=== PATIENT | female | born 1985 | race Caucasian/White ===

== ENCOUNTER 2023-07-25 22:32 | Inpatient (IN) | payer MEDICAID ==
[~2023-07-25] VITALS: Ht 154.9 cm; Wt 68.9 kg
[2023-07-25 22:39] VITALS: BP_SYST 109; PULSE 100; RESP 18; TEMP 98.4; O2SAT 100
[2023-07-26] VITALS (10 sets, daily range): BP systolic 89–108; PULSE 71–100; RESP 14–20; TEMP 97.5–99.3; O2SAT 96–100
[2023-07-26 00:11] LABS: BASOPHILS % (AUTO) 0.4 % (0.0-2.0); EOSINOPHILS % (AUTO) 0.4 % (0.0-4.0); HEMATOCRIT 38.4 % (36-48); HEMOGLOBIN 12.9 g/dL (12.0-16.0); LYMPHOCYTES # (AUTO) 2.4 K/uL (1.0-5.5); LYMPHOCYTES % (AUTO) 26.9 % (20.5-51.5); MEAN CORPUSCULAR HEMOGLOBIN 29 pg (27-31); MEAN CORPUSCULAR HGB CONC 34 % (32-36); MEAN CORPUSCULAR VOLUME 87 fL (79.0-98.0); MONOCYTES # (AUTO) 1.1 K/uL (0.0-1.0); NEUTROPHILS # (AUTO) 5.3 K/uL (1.8-7.7); NEUTROPHILS % (AUTO) 60.3 % (40.0-70.0); PLATELET COUNT (AUTO) 271 K/uL (130-430); RED BLOOD CELL COUNT(AUTO) 4.44 MIL/uL (4.2-6.2); RED CELL DISTRIBUTION WIDTH 13.5 % (9.0-15.0); WHITE BLOOD COUNT (AUTO) 8.8 K/uL (4.8-10.8)
[2023-07-26 00:25] LABS: INR 0.9 (0.8-1.2); PROTHROMBIN TIME 9.8 SECS (9.5-12.5)
[2023-07-26 00:31] LABS: CALCIUM 8.9 mg/dL (8.4-11.0); CREATININE 0.84 mg/dL (0.55-1.30); TOTAL BILIRUBIN 0.6 mg/dL (0.0-1.0)
[2023-07-26 00:40] LABS: POTASSIUM 2.9 mmol/L (3.5-5.1)
[2023-07-26] MEDS ORDERED: BACITRACIN 1 GM OINT TP ONE (00:45)
[2023-07-26] MEDS ORDERED: ONDANSETRON HCL 4 MG/2 ML VIAL IVP ONE (00:45)
[2023-07-26] MEDS ORDERED: KCL 20 mEq in 100 mL (PREMIX) 100 ML IV ONE (02:45)
[2023-07-26] MEDS ORDERED: fentaNYL CITRATE/PF 100 MCG/2 ML AMP IVP ONE ×2 (02:45)
[2023-07-26] MEDS ORDERED: POTASSIUM CHLORIDE 20 MEQ TAB.PRT.SR PO ONE (02:45)
[2023-07-26] MEDS ORDERED: MORPHINE 2 MG/ML INJ. SYRINGE IVP PRN (03:30)
[2023-07-26 04:46] LABS: CALCIUM 8.7 mg/dL (8.4-11.0); CREATININE 0.77 mg/dL (0.55-1.30); POTASSIUM 3.3 mmol/L (3.5-5.1)
[2023-07-26 04:47] LABS: BASOPHILS % (AUTO) 0.4 % (0.0-2.0); EOSINOPHILS % (AUTO) 0.1 % (0.0-4.0); HEMATOCRIT 34.6 % (36-48); HEMOGLOBIN 11.6 g/dL (12.0-16.0); LYMPHOCYTES # (AUTO) 1.7 K/uL (1.0-5.5); LYMPHOCYTES % (AUTO) 18.1 % (20.5-51.5); MEAN CORPUSCULAR HEMOGLOBIN 29 pg (27-31); MEAN CORPUSCULAR HGB CONC 34 % (32-36); MEAN CORPUSCULAR VOLUME 86 fL (79.0-98.0); MONOCYTES # (AUTO) 0.8 K/uL (0.0-1.0); MONOCYTES % (AUTO) 8.4 % (1.7-9.3); NEUTROPHILS # (AUTO) 6.9 K/uL (1.8-7.7); PLATELET COUNT (AUTO) 245 K/uL (130-430); RED BLOOD CELL COUNT(AUTO) 4.03 MIL/uL (4.2-6.2); RED CELL DISTRIBUTION WIDTH 13.6 % (9.0-15.0); WHITE BLOOD COUNT (AUTO) 9.4 K/uL (4.8-10.8)
[2023-07-26 04:51] LABS: ALBUMIN 3.6 g/dL (3.4-4.8); TOTAL BILIRUBIN 0.6 mg/dL (0.0-1.0); TOTAL PROTEIN, SERUM 7.2 g/dL (6.4-8.3)
[2023-07-26] MEDS ORDERED: ONDANSETRON HCL 4 MG/2 ML VIAL IVP PRN ×2 (06:00→13:00)
[2023-07-26] MEDS ORDERED: D5/0.45 NS 1,000 ML IV SCH (06:00)
[2023-07-26 10:24] LABS: BILIRUBIN,URINE NEGATIVE (NEGATIVE); BLOOD, URINE 3+ (NEGATIVE); COLOR,URINE YELLOW (YELLOW); GLUCOSE,URINE NEGATIVE (NEGATIVE); KETONES,URINE NEGATIVE (NEGATIVE); LEUKOCYTE ESTERASE ,URINE NEGATIVE (NEGATIVE); NITRITE, URINE NEGATIVE (NEGATIVE); PH,URINE 5.5 (5.0-8.0); PROTEIN URINE TRACE (NEGATIVE); UROBILINOGEN,URINE 0.2 (0.2-1.0)
[2023-07-26 10:26] LABS: CLARITY/URINE HAZY (CLEAR)
[2023-07-26 10:31] LABS: HCG,QUAL RESULT NEGATIVE (NEGATIVE)
[2023-07-26 10:35] LABS: BACTERIA,URINE FEW /HPF (None Seen); MUCUS,URINE 1+ /LPF (None Seen); WBC,URINE 0-3 /HPF (0-3)
[2023-07-26] MEDS ORDERED: DEXAMETHASONE SOD PHOSPHATE 4 MG/ML VIAL ONE (12:08)
[2023-07-26] MEDS ORDERED: PROPOFOL 200MG/ 20ML VIAL (DIPRIVAN) IV ONE (12:08)
[2023-07-26] MEDS ORDERED: KETOROLAC TROMETHAMINE 30 MG VIAL ONE (12:08)
[2023-07-26] MEDS ORDERED: MORPHINE SULFATE 10MG/10ML PF AMP ONE (12:08)
[2023-07-26] MEDS ORDERED: LIDOCAINE 2%, 20 ML MDV ONE (12:08)
[2023-07-26] MEDS ORDERED: NS IRRIG SOLN 1000 ML IR ONE (12:08)
[2023-07-26] MEDS ORDERED: BUPIVACAINE /PF 0.5% 30 ML VIAL ONE (12:08)
[2023-07-26] MEDS ORDERED: ceFAZolin SODIUM 1 GM VIAL ONE (12:08)
[2023-07-26] MEDS ORDERED: ONDANSETRON HCL 4 MG/2 ML VIAL ONE (12:08)
[2023-07-26] MEDS ORDERED: MIDAZOLAM HCL 5 MG/ML VIAL (VERSED) IV ONE (12:08)
[2023-07-26] MEDS ORDERED: DIPHENHYDRAMINE INJ 50 MG/ML VIAL IVP PRN (13:00)
[2023-07-26] MEDS ORDERED: NALOXONE HCL 0.4 MG/ML AMP (NARCAN) IVP PRN (13:00)
[2023-07-26] MEDS ORDERED: METOCLOPRAMIDE HCL 10 MG/2 ML VIAL IVP PRN (13:00)
[2023-07-26] MEDS ORDERED: MEPERIDINE HCL/PF 25 MG/ML DISP.SYRIN IVP PRN (13:00)
[2023-07-26] MEDS ORDERED: HYDROmorphone 1 MG/ML INJ. CARTRIDGE IVP PRN ×2 (13:00)
[2023-07-26] MEDS: LR 1,000 ML IV SCH ×2 (13:00→23:00)
[2023-07-26] MEDS ORDERED: MIDAZOLAM HCL 2 MG/2 ML VIAL (VERSED) IVP PRN (13:00)
[2023-07-26] MEDS ORDERED: ACETAMINOPHEN I.V. 1000 MG 100 ML IV ONE (13:29)
[2023-07-26] MEDS: D5/0.45 NS 1,000 ML IV SCH ×2 (14:15→22:57)
[2023-07-26] MEDS: TAMSULOSIN HCL 0.4 MG CAP PO SCH (22:57)
[2023-07-27] VITALS (7 sets, daily range): BP systolic 95–116; PULSE 70–93; RESP 16–18; TEMP 97.6–99.3; O2SAT 96–100
[2023-07-27 05:01] LABS: BASOPHILS % (AUTO) 0.2 % (0.0-2.0); EOSINOPHILS % (AUTO) 0.1 % (0.0-4.0); HEMATOCRIT 28.1 % (36-48); HEMOGLOBIN 9.4 g/dL (12.0-16.0); LYMPHOCYTES # (AUTO) 1.9 K/uL (1.0-5.5); LYMPHOCYTES % (AUTO) 24.3 % (20.5-51.5); MEAN CORPUSCULAR HEMOGLOBIN 29 pg (27-31); MEAN CORPUSCULAR HGB CONC 33 % (32-36); MEAN CORPUSCULAR VOLUME 87 fL (79.0-98.0); MONOCYTES # (AUTO) 0.8 K/uL (0.0-1.0); MONOCYTES % (AUTO) 10.5 % (1.7-9.3); NEUTROPHILS % (AUTO) 64.9 % (40.0-70.0); PLATELET COUNT (AUTO) 210 K/uL (130-430); RED BLOOD CELL COUNT(AUTO) 3.23 MIL/uL (4.2-6.2); RED CELL DISTRIBUTION WIDTH 13.7 % (9.0-15.0); WHITE BLOOD COUNT (AUTO) 7.8 K/uL (4.8-10.8)
[2023-07-27 05:27] LABS: CALCIUM 8.1 mg/dL (8.4-11.0); CREATININE 0.64 mg/dL (0.55-1.30)
[2023-07-27] MEDS: TAMSULOSIN HCL 0.4 MG CAP PO SCH (08:29)
[2023-07-27] MEDS: D5/0.45 NS 1,000 ML IV SCH ×2 (08:40→19:14)
[2023-07-27] MEDS ORDERED: HYDR-3917 PO (11:34)
[2023-07-27] MEDS: MORPHINE 2 MG/ML INJ. SYRINGE IVP PRN (20:23)
[2023-07-28 00:50] VITALS: BP_SYST 104; PULSE 80; RESP 18; TEMP 97.4; O2SAT 100
[2023-07-28] MEDS: MORPHINE 2 MG/ML INJ. SYRINGE IVP PRN ×2 (04:40→09:24)
[2023-07-28] MEDS: D5/0.45 NS 1,000 ML IV SCH (04:41)
[2023-07-28 08:00] VITALS: BP_SYST 116; PULSE 69; RESP 18; TEMP 97.9; O2SAT 100
[2023-07-28] MEDS: TAMSULOSIN HCL 0.4 MG CAP PO SCH (09:06)
[2023-07-28 11:27] VITALS: BP_SYST 118; PULSE 79; RESP 16; TEMP 96.7; O2SAT 96
[2023-07-28 12:00] VITALS: BP_SYST 109; PULSE 86; RESP 18; TEMP 98; O2SAT 100
[2023-07-28] MEDS ORDERED: ASPI-1393 PO (12:14)
[2023-07-28 13:20] VITALS: BP_SYST 109; PULSE 85; RESP 18; TEMP 98; O2SAT 100
== END 2023-07-28 14:50 | disposition home or self-care (01) | DRG 313 ==
LOC: SED 22:32 → SMU 07-26 03:20
PROVIDERS: ADMIT Internal Medicine; ATTEND Internal Medicine
PROC: 0QSJ04Z Reposition Right Fibula with Internal Fixation Device, Open Approach (ICD-10-PCS; 2023-07-26)
PROC: 2W3QX1Z Immobilization of Right Lower Leg using Splint (ICD-10-PCS; principal; 2023-07-26 12:51)
DX: S82.851A Displaced trimalleolar fracture of right lower leg, initial encounter for closed fracture (principal); D62 Acute posthemorrhagic anemia; S80.811A Abrasion, right lower leg, initial encounter; Z20.822 Contact with and (suspected) exposure to COVID-19; W18.39XA Other fall on same level, initial encounter; Y93.89 Activity, other specified; Y92.89 Other specified places as the place of occurrence of the external cause; Y99.8 Other external cause status
CPT/HCPCS: 36415; 73590-TC; 73700-TC; 76001; 76376; 80048; 80053; 81000; 81001; 81015; 84703; 85025; 85610-TC; 85730-TC; 86886; 86900; 86901; 94010; 96374; 96375; 97110-GP; 97116-GP; 97163-GP; 99285; C1713; C1769; J0131; J0690; J1100; J1885; J2001; J2250; J2270; J2274; J2405; J2704; J3010; J3465; J3480; J3490